=== PATIENT | male | born 1960 | race Caucasian/White ===

== ENCOUNTER → 2022-11-28 | Outpatient (CLI) | payer OTHER ==
--- NOTE | 2022-11-28 09:37 | US ---
EXAMINATION TYPE: US abdomen complete DATE OF EXAM: 11/28/2022 COMPARISON: NONE CLINICAL INDICATION: Male, 62 years old with history of K76.0 fatty liver; no symptoms today, h/o cho lecystectomy and fatty liver TECHNIQUE: Multiple sonographic images of the abdomen are obtained. FINDINGS: EXAM MEASUREMENTS: Liver Length: 18.0 cm Gallbladder Wall: Surgically absent CBD: 0.9 cm Spleen: 11.6 cm Right Kidney: 11.3 x 5.2 x 5.4 cm Left Kidney: 12.2 x 6.2 x 6.8 cm [employer] NOTES: difficult o penetrate Pancreas: not seen due to bowel gas Liver: intercostal imaging due to bowel gas, wnl Gallbladder: Surgically absent Evidence for sonographic Briseno's sign: no CBD: wnl Spleen: wnl Right Kidney: wnl Left Kidney: wnl Upper IVC: wnl Abd Aorta: wnl The liver is homogenous. The intrahepatic portion of the IVC and proximal abdominal aorta are within normal limits. Common bile duct is unremarkable. The visualized portions of the pancreas are homog enous. The spleen is unremarkable. Kidneys are symmetric and free of hydronephrosis. No renal lesi ons are seen. IMPRESSION: No distinct abnormality seen.
== END ==
LOC: RADUSWWP 07:35
PROVIDERS: ATTEND Internal Medicine Hematology & Oncology
DX: K76.0 Fatty (change of) liver, not elsewhere classified (principal); D61.818 Other pancytopenia; Z85.46 Personal history of malignant neoplasm of prostate
CPT/HCPCS: 76700

== ENCOUNTER → 2024-04-24 | Outpatient (CLI) | payer OTHER ==
--- NOTE | 2024-04-25 08:18 | PE ---
EXAMINATION TYPE: PET CT fusion skull to thigh DATE OF EXAM: 04/24/2024 COMPARISON: NONE at this institution. HISTORY: Lymphoma in lower abdomen newly diagnosed , recent abnormal outside CT TECHNIQUE: Following the intravenous administration of 11.77 mCi of F-18 FDG, whole body images are performed from the skull base to the midthigh. Images are reviewed on the computer in the coronal, a xial, and sagittal planes. Reconstructed rotating images are created on independent workstation and reviewed on the computer. A localization and attenuation correction CT is performed in conjunction with the PET scan. Blood glucose level equals 102. SCAN: Initial Scan FINDINGS: Mean SUV mediastinum: 1.12 Mean SUV liver: 2.13 SKULL BASE AND NECK: Abnormal lymph node supraclavicular region level of the left thyroid lobe measu res 2.0 x 1.5 cm, SUV is 14.45 on axial image 71. CHEST, MEDIASTINUM, AND HILAR REGION: Abnormal hypermetabolic enlarged lymph nodes along the course o f the esophagus,max SUV is 17.51 on axial image 100. ABDOMEN AND PELVIS: Normal examination is present. Abnormal enlarged retrocrural and retroperitoneal lymph nodes becoming more prominent and confluent in the pelvis, max SUV is 34.79 in the left upper p collin axial image 208 and 36.23 in the right upper to mid pelvis presacral region axial image 218. Ma ss effect in the pelvis is present due to size. There are hypermetabolic areas in the right medial posterior hip region near axial image 240 and 245, max SUV is 23.32 at this level on axial image 241. Prominent bilateral groin lymph nodes are seen without abnormal hypermetabolic uptake. OSSEOUS STRUCTURES: No areas of abnormal hypermetabolic uptake. OTHER CT: Dermal-based 1.3 cm round lesion left anterior chest wall enhancement 116 favors dermatolog ic etiology. No significant coronary artery calcifications. Cholecystectomy clips are present. IMPRESSION: Abnormal hypermetabolic lymph nodes above and below the diaphragm consistent with known l ymphoma. [facility], , 04/25/2024 8:16 AM
== END | disposition home or self-care (01) ==
LOC: RADPETMAIN 12:35
PROVIDERS: ATTEND Internal Medicine Hematology & Oncology
DX: C85.16 Unspecified B-cell lymphoma, intrapelvic lymph nodes (principal); Z90.49 Acquired absence of other specified parts of digestive tract; R59.0 Localized enlarged lymph nodes
CPT/HCPCS: 78815; A9552

== ENCOUNTER 2024-04-25 09:45 | Day surgery (SDC) | payer OTHER ==
[2024-04-22 08:26] VITALS: BMI 39.9
[~2024-04-25 09:45] MED LIST: DEXAMETHASONE SOD PHOSPHATE 4 MG/ML 1 ML VIAL IV ONE; HYDROmorphone 0.5 MG/0.5 ML SYRINGE IVP PRN; LIDOCAINE 1% (10MG/ML) FOR IV START INTRADERMA PRN; MIDAZOLAM 2 MG/2 ML VIAL IV PRN; ONDANSETRON 4 MG/2 ML VIAL IVP ONE; Pre Op ABX Message 1 EACH MISC MISCELLANE ONE; fentaNYL (PF) 50 MCG/ML 2 ML AMP IVP PRN
[2024-04-25 10:14] VITALS: TEMP 98.6
[2024-04-25] MEDS: IV FLUID CONTINUATION 1,000 ML IV ONE (10:17)
[2024-04-25] MEDS: LACTATED RINGERS 1,000 ML IV SCH (10:19)
[2024-04-25] MEDS: HYDROCORTISONE SUCCINATE 100 MG/2 ML VIAL IV STA (10:28)
[2024-04-25] MEDS ORDERED: LIDOCAINE 1% INJ 10MG/ML (20 ML MDV) ONE (10:42)
[2024-04-25] MEDS ORDERED: MIDAZOLAM 2 MG/2 ML VIAL ONE (10:42)
[2024-04-25] MEDS ORDERED: fentaNYL (PF) 50 MCG/ML 2 ML AMP ONE (10:42)
[2024-04-25] MEDS ORDERED: PROPOFOL 10 MG/ML 20 ML VIAL IV ONE (10:42)
[2024-04-25] MEDS: ceFAZolin 1,000 MG VIAL IVPB ONE (10:43)
[2024-04-25] MEDS: LIDOCAINE 1% INJ 10MG/ML (20 ML MDV) SQ ONE (11:00)
--- NOTE | 2024-04-25 11:48 | FL ---
EXAMINATION TYPE: FL guided central line placemt DATE OF EXAM: 04/25/2024 11:39 AM COMPARISON: Pre Operative Images if available both CT/MRI or plain film CLINICAL INDICATION: Male, 64 years old with history of PORT A CATH INSERTION; TECHNIQUE: FL guided central line placemt, multiple fluoroscopic images provided for procedure. DAP: 0.10307 mGym2 Gycm2 uGym2 cGycm2 or equivalent. FINDINGS: Fluoroscopic images during injection for pain management demonstrate multilevel degeneration changes throughout the spine. No evidence for fracture. No acute process identified. IMPRESSION: 1. No evidence for intraoperative complication. 2. Please see the operative/procedural note for further details. [facility], , 04/25/2024 11:46 AM
--- NOTE | 2024-04-25 12:11 | XR ---
EXAMINATION TYPE: XR chest 1V portable DATE OF EXAM: 04/25/2024 12:01 PM COMPARISON: None. CLINICAL INDICATION: Male, 64 years old with history of r/o pneumothorax, TECHNIQUE: XR chest 1V portable views of the chest are obtained. FINDINGS: Demonstrated are scattered senescent parenchymal change. Right-sided pleural catheter without evidence for pneumothorax. There is no evidence for focal infilt rate. The heart is stable. Hilar and mediastinal structures are within normal limits. Degenerative changes are seen of the dorsal spine. IMPRESSION: 1. Right-sided pleural catheter without evidence for pneumothorax. [facility], , 04/25/2024 12:09 PM
[2024-04-25 12:19] VITALS: BP 156/94; PULSE 75; RESP 18
--- NOTE | 2024-04-27 13:03 | P.OP ---
Date of Procedure: 04/25/24 Preoperative Diagnosis: non hodkins Postoperative Diagnosis: non hodgkins Procedure(s) Performed: mediport placement Anesthesia: GETA, local Surgeon: Kofi Bacon Estimated Blood Loss (ml): 7 Pathology: none sent Condition: stable Disposition: PACU Indications for Procedure: Non-Hodgkin's lymphoma Operative Findings: None Description of Procedure: Patient was brought to the operating room where he was cleaned draped in sterile fashion and timeout was performed and everyone agreed with the information set at all landmarks were marked and a puncture site was chosen 2 fingerbreadths below the clavicle and introducer needle was then used to gain access to the subclavian vein and guidewire was placed and this was confirmed using fluoroscopy. The guidewire was then secured with a hemostat I then created my pocket 1 to 2 fingerbreadths below this. Once a pocket was created I used a tunneling device to tunneled the future catheter in place and then use a dilator sheath combo over the guidewire the guidewire was then removed along with the inner sheath. The Mediport was then placed under fluoroscopy at the SVC junction. The actual port was placed on the catheter and secured with a lock. This was then secured to the prepectoral fascia using multiple Ethibond sutures. A Moses needle was then used to confirm that the port was in working order. This was flushed with hep saline the skin was closed using 4-0 Vicryl suture in a running fashion the puncture site was closed using 4-0 Vicryl suture suture in an interrupted fashion and then the humeral needle was used 1 final time to verify that the port was instilled in working order. 1 less fluoroscopy picture was taken to verify placement as well. The patient tolerated procedure well and was then transported to PACU in stable condition this was dictated using [employer] software
== END 2024-04-25 12:41 | disposition home or self-care (01) ==
LOC: OR 09:45
PROVIDERS: ATTEND Surgery
DX: C81.90 Hodgkin lymphoma, unspecified, unspecified site (principal); D69.6 Thrombocytopenia, unspecified; K76.0 Fatty (change of) liver, not elsewhere classified; Z85.46 Personal history of malignant neoplasm of prostate
CPT/HCPCS: 77001; 71045; 36561; C1788; J2250; J1720; J0690; J2003; J3010; J1642; J2704

== ENCOUNTER → 2024-04-25 | Outpatient (CLI) | payer OTHER ==
--- NOTE | 2024-04-26 14:58 | CA ---
Transthoracic Echo Report Name: Steve Craven Age: 64 Gender: M : 1960 Exam Date: 04/25/2024 13:34 Exam Location: [facility] [facility] Ht (in): 75 Wt (lb): 320 Ordering Physician: Chi Kramer MD Attending/Referring Phys: Taping Foreman Damien Santo RDCS Procedure CPT: Indications: Z01.818 Chemo Cardiac Hx: Technical Quality: Good Contrast 1: Total Dose (mL): Contrast 2: Total Dose (mL): MEASUREMENTS (Male / Female) Normal Values 2D ECHO LV Diastolic Diameter PLAX 6.4 cm 4.2 - 5.9 / 3.9 - 5.3 cm LV Systolic Diameter PLAX 4.3 cm IVS Diastolic Thickness 1.0 cm 0.6 - 1.0 / 0.6 - 0.9 cm LVPW Diastolic Thickness 0.9 cm 0.6 - 1.0 / 0.6 - 0.9 cm LV Relative Wall Thickness 0.3 Aortic Root Diameter 3.5 cm LA Systolic Diameter LX 3.5 cm 3.0 - 4.0 / 2.7 - 3.8 cm LV Diastolic Volume MOD BP 207.4 cm??? 67 - 155 / 56 - 104 cm??? LV Systolic Volume MOD BP 90.4 cm??? 22 - 58 / 19 - 49 cm??? LV Ejection Fraction MOD BP 56.4 % >= 55 % LV Cardiac Index MOD BP 3020.4 cm???/min???m??? LV Diastolic Volume MOD 4C 210.3 cm??? LV Systolic Volume MOD 4C 88.2 cm??? LV Ejection Fraction MOD 4C 58.1 % LV Cardiac Index MOD 4C 3154.8 cm???/min???m??? LV Diastolic Length 4C 10.3 cm LV Systolic Length 4C 8.2 cm LV Diastolic Volume MOD 2C 181.5 cm??? LV Systolic Volume MOD 2C 91.0 cm??? LV Ejection Fraction MOD 2C 49.9 % LV Cardiac Index MOD 2C 2337.5 cm???/min???m??? LV Diastolic Length 2C 9.1 cm LV Systolic Length 2C 8.4 cm DOPPLER AV Peak Velocity 186.4 cm/s AV Peak Gradient 13.9 mmHg AV Mean Velocity 126.7 cm/s AV Mean Gradient 7.3 mmHg AV Velocity Time Integral 31.6 cm Mitral E Point Velocity 52.3 cm/s Mitral A Point Velocity 80.0 cm/s Mitral E to A Ratio 0.7 MV Deceleration Time 296.6 ms MV E' Velocity 6.1 cm/s Mitral E to MV E' Ratio 8.6 TR Peak Velocity 238.0 cm/s TR Peak Gradient 22.7 mmHg Right Atrial Pressure 5.0 mmHg Pulmonary Artery Systolic Pressu 27.7 mmHg Right Ventricular Systolic Press 27.7 mmHg FINDINGS Left Ventricle Left ventricular ejection fraction is estimated at 55-60 %. Normal left ventricular systolic function with no obvious regional wall motion abnormalities. systolic volume. Right Ventricle Normal right ventricular size and function. Right ventricular systolic pressure within normal limits. Right Atrium Moderate right atrial dilatation. Left Atrium Normal left atrial size. Mitral Valve Structurally normal mitral valve. No mitral stenosis, regurgitation or prolapse. Aortic Valve Trileaflet aortic valve. No aortic valve stenosis or regurgitation. Tricuspid Valve Structurally normal tricuspid valve. No tricuspid stenosis. Trace tricuspid regurgitation. Pulmonic Valve Structurally normal pulmonic valve. No pulmonic stenosis. No pulmonic regurgitation. Pericardium No pericardial effusion. No pleural effusion. Aorta Normal size aortic root and proximal ascending aorta. CONCLUSIONS Diagnosis prechemotherapy assessment of LV function Left ventricle ejection fraction 55% Previewed by: Dr. Mati Will MD (Electronically Signed) Final Date: 26 April 2024 14:57
== END | disposition home or self-care (01) ==
LOC: RADECHMAIN 09:49
PROVIDERS: ATTEND Internal Medicine Hematology & Oncology
DX: Z01.818 Encounter for other preprocedural examination (principal)
CPT/HCPCS: 93306

== ENCOUNTER → 2024-07-11 | Outpatient (CLI) | payer OTHER ==
--- NOTE | 2024-07-11 10:52 | PE ---
EXAMINATION TYPE: PET CT fusion skull to thigh DATE OF EXAM: 07/11/2024 COMPARISON: Prior PET/CT April 24, 2024 HISTORY: Non-Hodgkin Lymphoma diagnosed April 2024 completed chemotherapy June 25 . History of prosta te cancer. TECHNIQUE: Following the intravenous administration of 10.3 mCi of F-18 FDG, whole body images are p erformed from the skull base to the midthigh. Images are reviewed on the computer in the coronal, ax ial, and sagittal planes. Reconstructed rotating images are created on independent workstation and r eviewed on the computer. A localization and attenuation correction CT is performed in conjunction w ith the PET scan. Blood glucose level equals 98. SCAN: Subsequent Scan FINDINGS: Mean SUV mediastinum: 1.72 Mean SUV liver: 3.06 SKULL BASE AND NECK: Interval resolution of abnormal metabolic lymph node left supraclavicular regio n. No new hypermetabolic lymph nodes. CHEST, MEDIASTINUM, AND HILAR REGION: Interval resolution of abnormal hypermetabolic lymph nodes thro ughout the mediastinum. No new area of abnormal hypermetabolic uptake. ABDOMEN AND PELVIS: Normal excretion is redemonstrated. Interval resolution of abnormal hypermetaboli c lymph nodes throughout the abdomen. Persistent prominent and slightly enlarged iliac chain lymph no milla with abnormal hypermetabolic uptake right side measuring max SUV 14.1 axial image 247. Interval resolution of prominent bilateral groin lymph nodes. OSSEOUS STRUCTURES: No areas of abnormal hypermetabolic uptake. OTHER CT: Dermal-based 1.3 cm round lesion left anterior chest wall lesion redemonstrated favors derm atologic etiology. No significant coronary artery calcifications. There is new right-sided Mediport c atheter. Cholecystectomy clips are redemonstrated. IMPRESSION: Significant partial positive treatment response. [facility], , 07/11/2024 10:07 AM
== END | disposition home or self-care (01) ==
LOC: RADPETMAIN 08:03
PROVIDERS: ATTEND Internal Medicine Hematology & Oncology
DX: C85.16 Unspecified B-cell lymphoma, intrapelvic lymph nodes (principal)
CPT/HCPCS: 78815; A9552